=== PATIENT | male | born 1990 | race Hispanic/Latino ===

== ENCOUNTER 2021-12-30 16:52 | Emergency (ER) | payer MEDICAID, SELFPAY ==
[2021-12-30] MEDS ORDERED: traMADol HCl 50 MG TAB ONE (18:13)
== END 2021-12-30 19:08 | disposition home or self-care (01) ==
LOC: ERS 16:52
DX: M62.830 Muscle spasm of back (principal); M54.50 Low back pain, unspecified; G89.29 Other chronic pain; F17.210 Nicotine dependence, cigarettes, uncomplicated
CPT/HCPCS: 72100